=== PATIENT | male | born 1980 | race African-American/Black ===

== ENCOUNTER 2017-08-06 06:45 | Day surgery (SDC) | payer OTHER ==
[~2017-08-06] VITALS: Ht 185.4 cm; Wt 74.8 kg
--- NOTE | 2017-08-06 08:46 | NUR ---
08/06/17 0846 Nirmala Garza 3872-PATIENT ARRIVED TO PACU ON 6L MASK O2 SAT 100%. PATIENT NONAROUSABLE. DRESSING TO NOSE CDI. SR.
[2017-08-06] MEDS ORDERED: KEFLEX500 MG PO (10:32)
[2017-08-06] MEDS ORDERED: NORCO 5-325 TA1 EACH PO (10:32)
--- NOTE | 2017-08-06 10:56 | NUR ---
LE 1020 UP TO BATHROOM WITH ONE PERSON ASSIST. VOIDED. BACK IN ROOM GETTING DRESSED. 1040 DC INSTRUCTIONS GIVEN TO PT/GIRLFRIEND. LEFT VIA W/C.
--- NOTE | 2017-08-06 12:37 | NUR ---
PT SPOKE RATHER SOFTLY, FRIENDLY AND SEEMED ALERT AND ORIENTED. HE WAS READY FOR SURGERY IN HOPES HIS SNORING WILL STOP. RN IN TO CHECK, PT THANKED ME FOR VISIT. WILL FOLLOW NEEDED
--- NOTE | 2017-08-13 09:34 | OR ---
[facility] [address], [place] [address] Signed DATE OF PROCEDURE: 08/06/17 PREOPERATIVE DIAGNOSIS Septal deformity and inferior turbinate hypertrophy, bilateral. POSTOPERATIVE DIAGNOSIS Septal deformity and inferior turbinate hypertrophy, bilateral. PROCEDURE Septoplasty, cautery of bilateral inferior turbinate, submucosal. SURGEON: Maximino Rose M.D. ANESTHESIA: General LMA., Deja Lagos CRNA PREOPERATIVE HISTORY Mr. Carr is a 37-year-old man with a long history of nasal obstruction, congestion, difficulty breathing through the nose, treated with multiple appropriate medications, nasal sprays, antihistamine, and decongestants, all without relief. Exam in the office had shown septal deformity and inferior turbinate hypertrophy and he is taken to the operating room for the above-mentioned procedures. OPERATIVE PROCEDURE AN D FINDINGS After informed consent, the patient was taken to the operating room, placed in supine position where general LMA anesthesia was induced. The patient and procedure were verified. The patient received preoperative intranasal oxymetazoline and intravenous Ancef. The nasal cavity was inspected with the headlight and speculum. There was a septal deformity partially obstructive on the left side. Inferior turbinates were nicely decongested. The septal deformity was removed with initially 1% Lidocaine with Epi injection, elevation of the mucosa with a Tere elevator off the deviated septal bone and cartilage, and the deviation was then removed with the Lida. Airway was improved in this manner. The inferior turbinates were then cauterized with a long handle needle point cautery starting on the left. The medial and inferior surface of the inferior turbinate starting anteriorly all the way back posteriorly, multiple passes, good decongestion, good shrinkage and improvement in the airway. Same procedure on the right inferior turbinate. Bleeding was minimal, stopped afterwards. Packing was placed. Equal amount of trimmed Merocel coated with Neosporin 1 piece on each side tied anteriorly over a pad. The pharynx was suctioned clear of blood and secretions. The patient was then awakened, extubated, transported to recovery room in good condition. Electronically Signed By: MAXIMINO ROSE MD 08/13/17 0934 PATIENT NAME: MANA YADAV OPERATIVE REPORT DATE OF : 80 PHYSICIAN: MAXIMINO ROSE MD REPORT #: [id number] REPORT IS CONFIDENTIAL AND NOT TO BE RELEASED WITHOUT AUTHORIZATION [facility] [address] [place] [id number] Signed COMPLICATIONS: No complications. BLOOD LOSS: Minimal. SPECIMEN: None. DRAINS: None. PACKING: One piece of Merocel in each nostril. Maximino Rose MD GC/[place] /[id number] cc: Thelma Mann PA-C Electronically Signed By: MAXIMINO ROSE MD 08/13/17 0934 PATIENT NAME: AYLIN YADAVMANAIONA JAFFE OPERATIVE REPORT DATE OF : 80 PHYSICIAN: MAXIMINO ROSE MD REPORT #: [id number] REPORT IS CONFIDENTIAL AND NOT TO BE RELEASED WITHOUT AUTHORIZATION
== END 2017-08-06 10:40 | disposition home or self-care (01) ==
LOC: DS 06:45
PROVIDERS: Otolaryngology
PROC: 095L0ZZ Destruction of Nasal Turbinate, Open Approach (ICD-10-PCS; 2017-08-06)
PROC: 09SM0ZZ Reposition Nasal Septum, Open Approach (ICD-10-PCS; principal; 2017-08-06 07:45)
DX: J34.2 Deviated nasal septum (principal); J34.3 Hypertrophy of nasal turbinates
CPT/HCPCS: 00160; J1100; J2250; J2405; J2704; J3010; J7120